=== PATIENT | male | born 1960 | race Caucasian/White ===

== ENCOUNTER 2018-09-26 22:32 | Inpatient (IN) ==
[2018-09-26] MEDS ORDERED: Ketorolac Inj 30 MG/ML (IVP) Vial IV.PUSH ONE (23:02)
[2018-09-26] MEDS ORDERED: Morphine Inj 4 MG/ML Vial IV.PUSH ONE (23:02)
[2018-09-26 23:53] LABS: Baso % (Auto) 0.6 % (0.0-2.0); Eos # (Auto) 0.4 th/mm3 (0.0-0.4); Eos % (Auto) 6.9 % (0.0-4.0); Hematocrit 41.2 % (39.0-51.0); Hemoglobin 14.7 gm/dL (13.0-17.0); Lymph # (Auto) 1.4 th/mm3 (1.0-4.8); Lymph % (Auto) 25.3 % (9.0-44.0); Mean Corpuscular HGB Conc 35.6 % (32.0-36.0); Mean Corpuscular Hemoglobin 31.8 pg (27.0-34.0); Mean Corpuscular Volume 89.4 fL (80.0-100.0); Mean Platelet Volume 7.8 fL (7.0-11.0); Mono # (Auto) 0.5 th/mm3 (0.0-0.9); Mono % (Auto) 9.4 % (0.0-8.0); Neut # (Auto) 3.3 th/mm3 (1.8-7.7); Neut % (Auto) 57.8 % (16.0-70.0); Platelet Count 213 th/mm3 (150-450); Red Blood Count 4.61 mil/mm3 (4.50-5.90); White Blood Count 5.6 th/mm3 (4.0-11.0)
--- NOTE | 2018-09-27 00:36 | CT ---
EXAM DATE: 09/27/2018 12:16 AM EST AGE/SEX: 57 years / Male INDICATIONS: Trauma; fall. Left sided abdominal pain. CLINICAL DATA: This is the patient's initial encounter. Patient reports that signs and symptoms have been present for 1 day and indicates a pain score of 10/10. MEDICAL/SURGICAL HISTORY: Hypertension. Hypercholesterolemia. . ORAL CONTRAST: No oral contrast ingested. RADIATION DOSE: 6.64 CTDI (mGy) COMPARISON: No prior exams available for comparison. TECHNIQUE: Multiple contiguous axial images were obtained through the abdomen and pelvis following b olus infusion of 96 ml Omnipaque 350 (iohexol) nonionic water-soluble contrast as a single exam dos e. No oral contrast ingested. Using automated exposure control and adjustment of the mA and/or kV ac cording to patient size, radiation dose was kept as low as reasonably achievable to obtain optimal di agnostic quality images. DICOM format image data is available electronically for review and comparis on. FINDINGS: Lower Lungs: The visualized lower lungs are clear. Liver: Mild hepatomegaly. Multiple tiny hepatic hypodensities, likely cysts. No evidence of biliary d uctal dilatation. A calcified gallstones. Spleen: Enlarged without focal mass. Pancreas: Unremarkable without mass or calcification. Kidneys: Normal in size and shape. No evidence of mass or hydronephrosis. Adrenal Glands: Unremarkable. Aorta: The aorta and proximal iliac vessels are grossly unremarkable without aneurysmal dilation. Bowel/Mesentery: The bowel loops are grossly unremarkable. The cecum and sigmoid colon have a normal configuration. Abdominal Wall: Intact. Retroperitoneum: No evidence of adenopathy in the retrocrural, para-aortic, or deep pelvic regions. Bladder: Contours are smooth. Reproductive Organs: Central prosthetic calcifications Inguinal: The inguinal region is unremarkable without evidence of adenopathy. Bony Structures: Minimally displaced fractures of the left transverse processes of L1, L2 and L4. CONCLUSION: 1. Left lumbar transverse process fractures. 2. No acute intra-abdominal or pelvic traumatic injury. Electronically signed by: Nilay Greco MD Board Certified Radiologist 09/27/2018 12:35 AM EST
[2018-09-27 00:38] LABS: Alanine Aminotransferase 33 U/L (12-78); Alkaline Phosphatase 59 U/L (45-117); Anion Gap 8 meq/L (5-15); Aspartate Aminotransferase 28 U/L (15-37); Blood Urea Nitrogen 14 mg/dL (7-18); Calcium 8.2 mg/dL (8.5-10.1); Carbon Dioxide 32.1 meq/L (21.0-32.0); Chloride 96 meq/L (98-107); Glomerular Filtration Rate 84 mL/min (>89); Glucose,Random 85 mg/dL (74-106); Sodium 136 meq/L (136-145); Total Protein 7.3 g/dL (6.4-8.2)
--- NOTE | 2018-09-27 00:40 | ED ---
HPI General Chief Complaint: Fall Stated Complaint: Fall Time Seen by Provider: 09/26/18 22:40 Source: patient Mode of arrival: EMS Limitations: no limitations History of Present Illness HPI Narrative: 57-year-old male who has been drinking while at the [employer] slipped and fell from his truck and landed with his back on the hitch. Patient initially started having lower back pain. He is unable to stand and ambulate due to the pain. Patient points the pain to his left flank/CVA area. Vital signs were relatively stable. Patient had a substantial quantity to drink as per his behavior and admission although he does not say exactly how much. Patient denies head injury. No loss of consciousness. Related Data Home Medications Medication Instructions Recorded Confirmed amlodipine 2.5 mg PO DAILY 09/26/18 09/26/18 atorvastatin 10 mg PO DAILY 09/26/18 09/26/18 hydrochlorothiazide 12.5 mg PO DAILY 09/26/18 09/26/18 Previous Rx's Medication Instructions Recorded methocarbamol 500 mg PO Q8HR #90 tab 10/01/18 oxycodone-acetaminophen 1 tab PO Q4HR PRN #42 tab 10/01/18 Allergies Allergy/AdvReac Type Severity Reaction Status Date / Time Penicillins Allergy Rash Verified 09/26/18 22:38 Review of Systems ROS: all other systems reviewed are negative [facility] Medical History Medical History Hypercholesteremia (Acute) Hypertension (Acute) Surgical History Surgical History H/O knee surgery (Acute) Social History Social History Substance History: No History of Abuse Second Hand Smoke Exposure: No Smoking Status: Former smoker Tobacco Type: Cigarettes How Often Do You Have a Drink Containing Alcohol: 2 to 3 times a week Recent Travel in [facility] within the Last 8 Weeks: No Recent Out of Country Travel within the Last 8 Weeks: No Immunization History Tetanus Immunization: <5 Years Exam Narrative Exam Narrative: GENERAL: Moderately intoxicated, moderate distress SKIN: Focused skin assessment warm/dry. HEAD: Atraumatic. Normocephalic. EYES: Pupils equal and round. No scleral icterus. No injection or drainage. ENT: No nasal bleeding or discharge. Mucous membranes pink and moist. NECK: Trachea midline. No JVD. CARDIOVASCULAR: Regular rate and rhythm. No murmur appreciated. RESPIRATORY: No accessory muscle use. Clear to auscultation. Breath sounds equal bilaterally. GASTROINTESTINAL: Abdomen soft, non-tender, nondistended. Hepatic and splenic margins not palpable. MUSCULOSKELETAL: No obvious deformities. No clubbing. No cyanosis. No edema. Upon palpation of the back no midline tenderness or step-off. Patient has substantial left paraspinal tenderness over the T12-L5 area. Moving the left hip joint without much difficulty. NEUROLOGICAL: Awake and alert. No obvious cranial nerve deficits. Motor grossly within normal limits. Normal speech. PSYCHIATRIC: Appropriate mood and affect; insight and judgment normal. Course Initial Documented Vital Signs Temperature 98.1 F 09/26/18 22:38 Pulse Rate 55 L 09/26/18 22:38 Respiratory Rate 20 09/26/18 22:38 Blood Pressure 154/97 H 09/26/18 22:38 Pulse Oximetry 98 09/26/18 22:38 Last Documented Vital Signs Temperature 97.5 F L 10/01/18 08:00 Pulse Rate 59 L 10/01/18 08:00 Respiratory Rate 18 10/01/18 08:00 Blood Pressure 152/92 H 10/01/18 08:00 Pulse Oximetry 95 10/01/18 08:00 Medical Decision Making MDM Narrative Medical decision making narrative: 12:38 AM patient was medicated for pain. Awaiting for the CAT scan and blood test report. I looked at the CT myself and the left transverse processes of L2, L3 and L5 appears to be fractured. Awaiting for the official read. Patient may need to be admitted for pain control. 1:40AM Patient did not ambulate well after the second pain medication and TLSO brace. Will admit him. Ordered Potassium replacement for the hypokalemia. Will admit him for intractable pain. Medical Screen Exam Complete: Yes Emergency Medical Condition: Yes Lab Data Result diagrams: 09/26/18 23:00 09/30/18 14:15 Lab Results 09/26/18 09/26/18 09/28/18 Range/Units 23:00 23:00 07:22 WBC 5.6 (4.0-11.0) th/mm3 RBC 4.61 (4.50-5.90) mil/mm3 Hgb 14.7 (13.0-17.0) gm/dL Hct 41.2 (39.0-51.0) % MCV 89.4 (80.0-100.0) fL MCH 31.8 (27.0-34.0) pg MCHC 35.6 (32.0-36.0) % RDW 13.0 (11.6-17.2) % Plt Count 213 (150-450) th/mm3 MPV 7.8 (7.0-11.0) fL Neut % (Auto) 57.8 (16.0-70.0) % Lymph % (Auto) 25.3 (9.0-44.0) % [place] % (Auto) 9.4 H (0.0-8.0) % Eos % (Auto) 6.9 H (0.0-4.0) % Baso % (Auto) 0.6 (0.0-2.0) % Neut # (Auto) 3.3 (1.8-7.7) th/mm3 Lymph # (Auto) 1.4 (1.0-4.8) th/mm3 [place] # (Auto) 0.5 (0.0-0.9) th/mm3 Eos # (Auto) 0.4 (0.0-0.4) th/mm3 Baso # (Auto) 0.0 (0.0-0.2) th/mm3 WBC Differential . Differential Comment Auto diff final Sodium 136 144 (136-145) meq/L Potassium 2.6 L* 3.1 L (3.5-5.1) meq/L Chloride 96 L 104 D (98-107) meq/L Carbon Dioxide 32.1 H 34.1 H (21.0-32.0) meq/L Anion Gap 8 6 (5-15) meq/L BUN 14 17 (7-18) mg/dL Creatinine 0.93 0.80 (0.60-1.30) mg/dL Estimated GFR 84 L Greater than 89 (>89) mL/min Random Glucose 85 81 (74-106) mg/dL Calcium 8.2 L 7.6 L (8.5-10.1) mg/dL Magnesium 1.8 (1.5-2.5) mg/dL Total Bilirubin 0.4 (0.2-1.0) mg/dL AST 28 (15-37) U/L ALT 33 (12-78) U/L Alkaline Phosphatase 59 (45-117) U/L Total Protein 7.3 (6.4-8.2) g/dL Albumin 4.0 (3.4-5.0) g/dL Serum Alcohol 232 H (0-5) mg/dL 09/29/18 09/30/18 Range/Units 06:45 14:15 WBC (4.0-11.0) th/mm3 RBC (4.50-5.90) mil/mm3 Hgb (13.0-17.0) gm/dL Hct (39.0-51.0) % MCV (80.0-100.0) fL MCH (27.0-34.0) pg MCHC (32.0-36.0) % RDW (11.6-17.2) % Plt Count (150-450) th/mm3 MPV (7.0-11.0) fL Neut % (Auto) (16.0-70.0) % Lymph % (Auto) (9.0-44.0) % [place] % (Auto) (0.0-8.0) % Eos % (Auto) (0.0-4.0) % Baso % (Auto) (0.0-2.0) % Neut # (Auto) (1.8-7.7) th/mm3 Lymph # (Auto) (1.0-4.8) th/mm3 [place] # (Auto) (0.0-0.9) th/mm3 Eos # (Auto) (0.0-0.4) th/mm3 Baso # (Auto) (0.0-0.2) th/mm3 WBC Differential Differential Comment Sodium 140 (136-145) meq/L Potassium 3.2 L 3.3 L (3.5-5.1) meq/L Chloride 102 (98-107) meq/L Carbon Dioxide 31.8 (21.0-32.0) meq/L Anion Gap 6 (5-15) meq/L BUN 16 (7-18) mg/dL Creatinine 0.74 (0.60-1.30) mg/dL Estimated GFR Greater than 89 (>89) mL/min Random Glucose 96 (74-106) mg/dL Calcium 7.8 L (8.5-10.1) mg/dL Magnesium (1.5-2.5) mg/dL Total Bilirubin (0.2-1.0) mg/dL AST (15-37) U/L ALT (12-78) U/L Alkaline Phosphatase (45-117) U/L Total Protein (6.4-8.2) g/dL Albumin (3.4-5.0) g/dL Serum Alcohol (0-5) mg/dL Imaging Data Radiologist's impression: Abdomen/Pelvis CT 09/26/18 23:02 CONCLUSION: 1. Left lumbar transverse process fractures. 2. No acute intra-abdominal or pelvic traumatic injury. Lumbar Spine MRI 09/27/18 00:00 CONCLUSION: 1. Mild degenerative changes as above. No canal or foraminal stenosis. No direct nerve root compression. Conus medullaris intact Discharge Plan Discharge Disposition Patient Disposition: ED Admit(ED Internal Use Only) Discharge Condition Condition: Good Discharge Order Discharge Orders: Discharge Order (Routine); Ordered 10/01/18 Ordered By: Yanet Holder ED Use Only Admit Order (Routine); Ordered 09/27/18 Ordered By: Yolis Leong Discharge Details Anticipated Discharge Date: 10/01/18 Physicians Team ED Provider: Yolis Leong Primary Care Provider: Primary Care Maty,Laurel Attending Provider: Yanet Holder Other Providers: Wallaec Aguilar Status ED Status: Left Department Discharge Information Discharge Date/Time: 09/27/18 05:14
[2018-09-27] MEDS ORDERED: Morphine Sulfate Inj 8 MG/ML Vial IV.PUSH ONE (00:50)
[2018-09-27 00:55] LABS: Alcohol 232 mg/dL (0-5)
[2018-09-27 00:56] LABS: Potassium 2.6 meq/L (3.5-5.1)
[2018-09-27] MEDS ORDERED: Potassium Chlor 20 mEq Premix 20 MEQ/100 ML PIGGYBACK IV.SIG ONE (01:04)
[2018-09-27] MEDS ORDERED: Acetaminophen 325 MG Tablet PO PRN (01:47)
[2018-09-27] MEDS ORDERED: Bisacodyl 10 MG Supp RECTAL PRN (01:47)
[2018-09-27] MEDS ORDERED: Naloxone Inj 0.4 MG/ML Vial IV.PUSH PRN (01:47)
[2018-09-27] MEDS: Sod Chloride 0.9% Inj 1,000 ML IV.CONT SCH ×3 (02:05→23:24)
[2018-09-27] MEDS ORDERED: diazePAM 5 MG Tablet PO SCH (02:30)
--- NOTE | 2018-09-27 02:43 | P.HPIM ---
History of Present Illness Primary Care Physician: No Primary Care Physician History of Present Illness: This is a 57-year-old male with a PMH of HTN and Hyperlipidemia who was brought to the ER after a fall w/ c/o back pain. [place], striking his back on the hitch. No head trauma or LOC. No other injuries reported. Pain is severe, constant, 10/10, non-radiating, worse w/ ambulation. On arrival, BP 154/97, HR 55, O2 sat 98% on RA, Afebrile. CBC unremarkable. K+ 2.6. GFR 84. Alcohol 232. CT Abdomen/Pelvis with left lumbar transverse process fractures. TLSO brace and ambulation attempted in ER, however pt w/ significant pain, unable to ambulate at this time. Diagnosis (1) Fall: (2) Lumbar transverse process fracture: (3) Intractable pain: (4) Hypokalemia: Inpatient Certification Inpatient Certification: I certify that the inpatient services were ordered in accordance with Medicare regulations governing the order. This includes certification that hospital inpatient services are reasonable and necessary and in the case of services not specified as inpatient-only under 42 CFR 419.22(n), that they are appropriately provided as inpatient services in accordance to with the 2-midnight benchmark under 43 CFR 412.3(e) Estimated Total Length of Stay (Days): 2 Plans for Post Hospital Care: Not yet determined Review of Systems PAST FAMILY HISTORY: Reviewed. No h/o DM or CAD Review of Systems: all other systems reviewed are negative [facility] Medical History Medical History Hypercholesteremia (Acute) Hypertension (Acute) Surgical History Surgical History H/O knee surgery (Acute) Social History Social History Substance History: No History of Abuse Second Hand Smoke Exposure: Yes Smoking Status: Current every day smoker Tobacco Type: Cigarettes How Often Do You Have a Drink Containing Alcohol: 4 or more times a week Recent Travel in [facility] within the Last 8 Weeks: No Recent Out of Country Travel within the Last 8 Weeks: No Immunization History Tetanus Immunization: <5 Years Medications and Allergies Allergies Allergy/AdvReac Type Severity Reaction Status Date / Time Penicillins Allergy Rash Verified 09/26/18 22:38 Home Medications Medication Instructions Recorded Confirmed Type amlodipine 2.5 mg PO DAILY 09/26/18 09/26/18 History atorvastatin 10 mg PO DAILY 09/26/18 09/26/18 History hydrochlorothiazide 12.5 mg PO DAILY 09/26/18 09/26/18 History Active Medications: Active Medications Acetaminophen (Tylenol) 650 mg PO Q4H PRN PRN Reason: Temp > 100.4 Hydrocodone Bitart/Acetaminophen ([place] 5/325) 1 tab PO Q4H PRN PRN Reason: PAIN SCALE 3 TO 5 Al Hydroxide/Mg Hydroxide (Milk Of Magnesia Liq) 30 ml PO Q12H PRN PRN Reason: Mild Constipation Bisacodyl (Dulcolax Supp) 10 mg RECTAL DAILY PRN PRN Reason: SEVERE CONSITIPATION Diazepam (Valium) 5 mg PO Q8H [facility] Potassium Chloride (Kcl 20 Meq Premix Inj) 20 meq in 100 mls @ 50 mls/hr IV.SIG ONCE ONE Stop: 09/27/18 03:03 Last Admin: 09/27/18 01:35 Dose: 50 mls/hr Sodium Chloride (Ns Inj) 1,000 mls @ 100 mls/hr IV.CONT .Q10H [facility] Last Admin: 09/27/18 02:05 Dose: 100 mls/hr Lactulose (Lactulose Liq) 30 ml PO DAILY PRN PRN Reason: SEVERE CONSITIPATION Morphine Sulfate (Morphine Inj) 2 mg IV.PUSH Q4H PRN PRN Reason: PAIN SCALE 6 TO 10 Naloxone HCl (Narcan Inj) 0.4 mg IV.PUSH UNSCH PRN PRN Reason: SEE LABEL COMMENTS Ondansetron HCl (Zofran Inj) 4 mg IV.PUSH Q6H PRN PRN Reason: NAUSEA OR VOMITING Senna/Docusate Sodium (Noelle-Colace) 1 tab PO BID [facility] Sennosides (Senokot) 17.2 mg PO Q12H PRN PRN Reason: Moderate Constipation Sodium Chloride (Ns Flush) 2 ml IV.FLUSH BID ABHIJIT Sodium Chloride (Ns Flush) 2 ml IV.FLUSH PRN PRN PRN Reason: FLUSH AFTER USING IV ACCESS Physical Exam Vital signs: Vital Signs 09/26/18 22:38 09/26/18 22:45 09/27/18 00:46 Temperature 98.1 F Pulse Rate 55 L 55 L Respiratory Rate 20 20 20 Blood Pressure 154/97 H 150/90 H Pulse Oximetry 98 98 09/27/18 00:47 09/27/18 01:15 09/27/18 01:39 Temperature Pulse Rate 58 L Respiratory Rate 20 20 17 Blood Pressure 129/78 Pulse Oximetry 97 Intake & Output 09/26/18 09/26/18 09/27/18 06:59 18:59 06:59 Weight 90.718 kg Narrative: PE: GENERAL: Very pleasant middle-aged white male in no acute distress. at bedside. SKIN: Focused skin assessment warm and dry. HEENT: PERRLA, EOMI. No scleral icterus or conjunctival pallor. No lid lag or facial droop. CARDIOVASCULAR: Regular rate and rhythm. No obvious murmurs to auscultation. No chest tenderness to palpation. RESPIRATORY: No obvious rhonchi or wheezing. Clear to auscultation. Breath sounds equal bilaterally. GASTROINTESTINAL: Abdomen soft, non-tender, nondistended. BS normal. MUSCULOSKELETAL: Extremities without clubbing, cyanosis, or edema. No obvious deformities. +Lumbar spinous process tenderness NEUROLOGICAL: Awake, alert and oriented x4. No focal neurologic deficits. Moving both upper and lower extremities spontaneously. PSYCHIATRIC: Appropriate mood and affect. Insight and judgment normal. Results Labs CBC & Chem 7: 09/26/18 23:00 09/26/18 23:00 Imaging Impressions Abdomen/Pelvis CT 09/26/18 23:02 CONCLUSION: 1. Left lumbar transverse process fractures. 2. No acute intra-abdominal or pelvic traumatic injury. Caprini VTE Risk Assessment Caprini VTE Risk Assessment: No/Low Risk (score <= 1) Caprini Risk Assessment Model: Point Value = 1 Point Value = 2 Point Value = 3 Point Value = 5 Age 41-60 Minor surgery BMI > 25 kg/m2 Swollen legs Varicose veins or History of unexplained or recurrent spontaneous Oral contraceptives or hormone replacement Sepsis (< 1 month) Serious lung disease, including pneumonia (< 1 month) Abnormal pulmonary function Acute myocardial infarction Congestive heart failure (< 1 month) History of inflammatory bowel disease Medical patient at bed rest Age 61-74 Arthroscopic surgery Major open surgery (> 45 min) Laparoscopic surgery (> 45 min) Malignancy Confined to bed (> 72 hours) Immobilizing plaster cast Central venous access Age >= 75 History of VTE Family history of VTE Factor V Leiden Prothrombin 12563M Lupus anticoagulant Anticardiolipin antibodies Elevated serum homocysteine Heparin-induced thrombocytopenia Other congenital or acquired thrombophilia Stroke (< 1 month) Elective arthroplasty Hip, pelvis, or leg fracture Acute spinal cord injury (< 1 month) Prophylaxis Regimen: Total Risk Factor Score Risk Level Prophylaxis Regimen 0-1 Low Early ambulation 2 Moderate Order ONE of the following: *Sequential Compression Device (SCD) *Heparin 5000 units SQ BID 3-4 Higher Order ONE of the following medications: *Heparin 5000 units SQ TID *Enoxaparin/Lovenox 40 mg SQ daily (WT < 150 kg, CrCl > 30 mL/min) *Enoxaparin/Lovenox 30 mg SQ daily (WT < 150 kg, CrCl > 10-29 mL/min) *Enoxaparin/Lovenox 30 mg SQ BID (WT < 150 kg, CrCl > 30 mL/min) AND/OR *Sequential Compression Device (SCD) 5 or more Highest Order ONE of the following medications: *Heparin 5000 units SQ TID (Preferred with Epidurals) *Enoxaparin/Lovenox 40 mg SQ daily (WT < 150 kg, CrCl > 30 mL/min) *Enoxaparin/Lovenox 30 mg SQ daily (WT < 150 kg, CrCl > 10-29 mL/min) *Enoxaparin/Lovenox 30 mg SQ BID (WT < 150 kg, CrCl > 30 mL/min) AND *Sequential Compression Device (SCD) Assessment and Plan (1) Fall: Code(s): W19.XXXA - Unspecified fall, initial encounter Status: Acute (2) Lumbar transverse process fracture: Code(s): S32.009A - Unspecified fracture of unspecified lumbar vertebra, initial encounter for closed fracture Status: Acute (3) Intractable pain: Code(s): R52 - Pain, unspecified Status: Acute (4) Hypokalemia: Code(s): E87.6 - Hypokalemia Status: Acute Plan A/P: 1. Fall: s/p fall while intoxicated, no LOC or head trauma reported, no other injuries noted. 2. Lumbar Transverse Process Fx: secondary to above, unable to tolerate TLSO due to significant pain, unable to ambulate due to severe pain. Consult PT for eval/tx, outpatient Neuro Surgery follow up 3. Intractable Pain: secondary to fall w/ lumbar process fractures, s/p Morphine in ER w/ minimal improvement, continue analgesics, add Valium, PT for eval/tx as above. 4. Hypokalemia: K+ 2.6, s/p PO/IV replacement, will recheck labs in am, additional replacement as needed. 5. DVT Prophylaxis: SCD/Teds 6. Social work for d/c planning as needed. 7. Case discussed w/ ER physician at length, labs/records/imaging reviewed by me
[2018-09-27] MEDS: Morphine Sulfate Inj 2 MG/ML Vial IV.PUSH PRN ×5 (05:06→23:22)
[2018-09-27] MEDS: Senna/Docusate Sodium 8.6/50 MG Tablet PO SCH ×2 (08:21→21:31)
[2018-09-27] MEDS: amLODIPine 5 MG Tablet PO SCH (10:40)
--- NOTE | 2018-09-27 11:25 | P.PNIM ---
Subjective Interval history: Complaining of left lower leg pain and back pain. Denies any numbness. Would like his home medications for blood pressure and cholesterol restarted. Reports that he does not drink alcohol heavily on a daily basis. Physical Exam Vital signs: Vital Signs 09/26/18 22:38 09/26/18 22:45 09/27/18 00:46 Temperature 98.1 F Pulse Rate 55 L 55 L Respiratory Rate 20 20 20 Blood Pressure 154/97 H 150/90 H Pulse Oximetry 98 98 09/27/18 00:47 09/27/18 01:15 09/27/18 01:39 Temperature Pulse Rate 58 L Respiratory Rate 20 20 17 Blood Pressure 129/78 Pulse Oximetry 97 09/27/18 04:52 09/27/18 06:11 09/27/18 07:49 Temperature Pulse Rate 53 L Respiratory Rate 18 17 18 Blood Pressure 169/94 H Pulse Oximetry 98 09/27/18 08:05 Temperature 97.9 F Pulse Rate 61 Respiratory Rate 16 Blood Pressure 127/71 Pulse Oximetry 95 Intake & Output 09/26/18 09/27/18 09/27/18 18:59 06:59 18:59 Intake Total 100 / 100 Balance 100 / 100 Weight 112.1 kg Intake: IV 100 / 100 KCl 20 mEq Premix Inj 20 meq In 100 / 100 100 ml @ 50 mls/hr IV.SIG ONCE ONE Rx#:[id number] Other: Date of Last Bowel Movement 09/26/18 09/26/18 Weight On Admission 112.1 kg Narrative: PE: GENERAL: Very pleasant middle-aged white male in no acute distress. at bedside. CARDIOVASCULAR: Regular rate and rhythm. No obvious murmurs to auscultation. No chest tenderness to palpation. RESPIRATORY: No obvious rhonchi or wheezing. Clear to auscultation. Breath sounds equal bilaterally. GASTROINTESTINAL: Abdomen soft, non-tender, nondistended. BS normal. MUSCULOSKELETAL: Extremities without clubbing, cyanosis, or edema. No obvious deformities. Tenderness palpated in the mid lower back NEUROLOGICAL: Awake, alert and oriented x4. No focal neurologic deficits. Moving both upper and lower extremities spontaneously with a 5 out of 5 motor strength. Results Labs CBC & Chem 7: 09/26/18 23:00 09/26/18 23:00 Imaging Imaging: Impressions Abdomen/Pelvis CT 09/26/18 23:02 CONCLUSION: 1. Left lumbar transverse process fractures. 2. No acute intra-abdominal or pelvic traumatic injury. Assessment and Plan (1) Fall: Code(s): W19.XXXA - Unspecified fall, initial encounter Status: Acute (2) Lumbar transverse process fracture: Code(s): S32.009A - Unspecified fracture of unspecified lumbar vertebra, initial encounter for closed fracture Status: Acute (3) Intractable pain: Code(s): R52 - Pain, unspecified Status: Acute (4) Hypokalemia: Code(s): E87.6 - Hypokalemia Status: Acute Plan 57-year-old white male with a history of hypertension hyperlipidemia currently visiting from [place] presents with back pain after he sustained a fall from his truck striking his back on the hitch Left lumbar transverse process fractures, L1, L2 and L4 -unable to ambulate due to significant pain ; likely will need TLSO, neurosurgery consult for follow- up. Physical therapy evaluation [place] and IV morphine for pain; add lidocaine patch Hypokalemiareplete check magnesium level Hypertension resume home amlodipine and HCTZ Hyperlipidemiaresume home statin DVT prophylaxisSCDs Progress Note: Quality VTE Deep Vein Thrombosis/Pulmonary Embolism Present on Admission: No
--- NOTE | 2018-09-27 12:01 | P.CONNS ---
History of Present Illness Service: Neurosurgery Consult date: 09/27/18 Requesting Physician: Yanet Holder Reason for Consult: L1,2 and 4 transverse process fractures Primary Care Provider: No Primary Care Physician History of Present Illness: I was asked by Dr. Holder to see and evaluate this 57-year-old male who has been drinking, fell from his truck and landed with his back on the hitch. Patient had acute onset of low back pain. In ED, he was unable to stand and ambulate due to pain. Patient points the pain to his left flank/CVA area. Vital signs were relatively stable. Patient denies head injury. No loss of consciousness. Review of Systems All other systems reviewed negative except as stated in HPI PMFSH - History History Provided By: Patient - Medical History Medical History: Medical History (Last Reviewed 09/27/18 @ 11:54 by Wallace Aguilar MD) Hypercholesteremia Hypertension - Surgical History Surgical History: Surgical History (Last Reviewed 09/27/18 @ 11:54 by Wallace Aguilar MD) H/O knee surgery - Tobacco History Second Hand Smoke Exposure: No Tobacco Use In Past 30 Days: No Smoking Status: Former smoker Tobacco Type: Cigarettes - Alcohol History How Often Do You Have a Drink Containing Alcohol: 2 to 3 times a week - Substance Use History Substance History: No History of Abuse - Travel History Recent Travel in the [place] Within the Last 8 Weeks: No Recent Travel Out of the Country Within the Last 8 Weeks: No - Immunization History Tetanus Immunization: <5 Years Hx Influenza Vaccine This Season: No Medications and Allergies Active Medications: Active Medications Acetaminophen (Tylenol) 650 mg PO Q4H PRN PRN Reason: Temp > 100.4 Hydrocodone Bitart/Acetaminophen ([place] 5/325) 1 tab PO Q4H PRN PRN Reason: PAIN SCALE 3 TO 5 Last Admin: 09/27/18 08:21 Dose: 1 tab Hydrocodone Bitart/Acetaminophen ([place] 10/325) 1 tab PO Q4H PRN PRN Reason: pain 6 to 10 Al Hydroxide/Mg Hydroxide (Milk Of Magnesia Liq) 30 ml PO Q12H PRN PRN Reason: Mild Constipation Amlodipine Besylate (Norvasc) 2.5 mg PO DAILY [facility] Last Admin: 09/27/18 10:40 Dose: 2.5 mg Atorvastatin Calcium (Lipitor) 10 mg PO DAILY [facility] Last Admin: 09/27/18 10:39 Dose: 10 mg Bisacodyl (Dulcolax Supp) 10 mg RECTAL DAILY PRN PRN Reason: SEVERE CONSITIPATION Cyclobenzaprine HCl (Flexeril) 10 mg PO Q8H PRN PRN Reason: SPASM Diazepam (Valium) 5 mg PO Q8H [facility] Last Admin: 09/27/18 10:40 Dose: Not Given Hydrochlorothiazide (Microzide) 12.5 mg PO DAILY [facility] Last Admin: 09/27/18 10:40 Dose: 12.5 mg Sodium Chloride (Ns Inj) 1,000 mls @ 100 mls/hr IV.CONT .Q10H [facility] Last Admin: 09/27/18 02:05 Dose: 100 mls/hr Lactulose (Lactulose Liq) 30 ml PO DAILY PRN PRN Reason: SEVERE CONSITIPATION Lidocaine HCl (Lidoderm 5% Patch.12 Hr) 1 patch T-DERMAL DAILY [facility] Miscellaneous (Pill Splitter) 1 each OTHER UNSCH PRN PRN Reason: SEE LABEL COMMENTS Morphine Sulfate (Morphine Inj) 4 mg IV.PUSH Q4H PRN PRN Reason: BREAKTHROUGH PAIN Naloxone HCl (Narcan Inj) 0.4 mg IV.PUSH UNSCH PRN PRN Reason: SEE LABEL COMMENTS Ondansetron HCl (Zofran Inj) 4 mg IV.PUSH Q6H PRN PRN Reason: NAUSEA OR VOMITING Senna/Docusate Sodium (Noelle-Colace) 1 tab PO BID [facility] Last Admin: 09/27/18 08:21 Dose: 1 tab Sennosides (Senokot) 17.2 mg PO Q12H PRN PRN Reason: Moderate Constipation Sodium Chloride (Ns Flush) 2 ml IV.FLUSH BID [facility] Last Admin: 09/27/18 08:22 Dose: 2 ml Sodium Chloride (Ns Flush) 2 ml IV.FLUSH PRN PRN PRN Reason: FLUSH AFTER USING IV ACCESS Allergies Allergy/AdvReac Type Severity Reaction Status Date / Time Penicillins Allergy Rash Verified 09/26/18 22:38 Home Medications Medication Instructions Recorded Confirmed Type amlodipine 2.5 mg PO DAILY 09/26/18 09/26/18 History atorvastatin 10 mg PO DAILY 09/26/18 09/26/18 History hydrochlorothiazide 12.5 mg PO DAILY 09/26/18 09/26/18 History Exam Vital signs: Vital Signs 09/26/18 22:38 09/26/18 22:45 09/27/18 00:46 Temperature 98.1 F Pulse Rate 55 L 55 L Respiratory Rate 20 20 20 Blood Pressure 154/97 H 150/90 H Pulse Oximetry 98 98 09/27/18 00:47 09/27/18 01:15 09/27/18 01:39 Temperature Pulse Rate 58 L Respiratory Rate 20 20 17 Blood Pressure 129/78 Pulse Oximetry 97 09/27/18 04:52 09/27/18 06:11 09/27/18 07:49 Temperature Pulse Rate 53 L Respiratory Rate 18 17 18 Blood Pressure 169/94 H Pulse Oximetry 98 09/27/18 08:05 Temperature 97.9 F Pulse Rate 61 Respiratory Rate 16 Blood Pressure 127/71 Pulse Oximetry 95 Intake & Output 09/26/18 09/27/18 09/27/18 18:59 06:59 18:59 Intake Total 100 / 100 Balance 100 / 100 Weight 112.1 kg Intake: IV 100 / 100 KCl 20 mEq Premix Inj 20 meq In 100 / 100 100 ml @ 50 mls/hr IV.SIG ONCE ONE Rx#:[id number] Other: Date of Last Bowel Movement 09/26/18 09/26/18 Weight On Admission 112.1 kg - Constitutional mild distress Comments: Severe LBP which radiates to LLE to level of the knee - Routine HEENT Exam Head: Present: normocephalic, atraumatic Eye: Present: EOMI, PERRL, normal accommodation ENT: Present: oropharynx clear - Routine Neck Exam Present: supple, full ROM - Routine Respiratory Exam Present: CTA bilaterally - Routine Cardiovascular Exam Present: RRR - Routine Back/Spine/Pelvis Exam Back/Spine: Present: full ROM, paraspinal tenderness, muscle spasm, pain with flexion, abnormal straight leg raise - Routine Skin Exam Present: intact, warm, normal turgor - Routine Neurological Exam Present: alert, oriented X3, CN II-XII intact, normal reflexes, moving all extremities, normal tone, vision grossly intact, hearing grossly intact, normal speech - Detailed Neurological Exam: Coma Scale Eye Opening: Spontaneous Verbal Response: Oriented Motor Response: Obey commands [place] Coma Scale Total: 15 - Routine Psychiatric Exam Present: normal affect, normal thought process, cooperative Results - Laboratory Findings CBC and BMP: 09/26/18 23:00 09/26/18 23:00 Abnormal lab findings: Abnormal Labs 09/26/18 09/26/18 23:00 23:00 [place] % (Auto) 9.4 H Eos % (Auto) 6.9 H Potassium 2.6 L* Chloride 96 L Carbon Dioxide 32.1 H Estimated GFR 84 L Calcium 8.2 L Serum Alcohol 232 H - Diagnostic Findings EKG: report reviewed, image reviewed CT scan - abdomen: report reviewed, image reviewed Assessment and Plan - Plan [address] confirmed Lt. L1,2,4 TP fractures s/p mechanical fall unto a trailer hitch c/o severe LBP which radiates to LLE to the level of the knee Neuro intact +SLR on the right to approx. 30 degrees, on the left 20 degrees recc: lumbar corsette for comfort. Pain control, would add muscle relaxant to his regimen... Robaxin 750 mg. po. T.I.D These are stable fractures and will not require brace or Neurosurgical intervention. However, will need L-spine MRI w/o EZEQUIEL to r/o acute disc herniation as patient exhibiting radicular symptoms. ?Trauma survey Will continue to follow
--- NOTE | 2018-09-27 17:08 | MR ---
EXAM DATE: 09/27/2018 5:03 PM EST AGE/SEX: 57 years / Male INDICATIONS: Pain. Left lower extremity radiculopathy. CLINICAL DATA: This is the patient's initial encounter. Patient reports that signs and symptoms have been present for 1 day and indicates a pain score of 5/10. MEDICAL/SURGICAL HISTORY: Hypertension. . Knee surgery. COMPARISON: No prior exams available for comparison. TECHNIQUE: Multiplanar, multisequence MRI of the lumbar spine was performed without contrast. Patie nt was scanned in a sitting position; neutral, flexion, and extension scans were performed in the sa gittal plane. FINDINGS: At B22-N7-E3 there is no significant abnormality. At L2-3-4-5 there are minimal disc bulges and mild disc degeneration but without significant canal or foraminal stenosis. Mild facet arthropathy. At L5-S1 there is facet arthropathy without canal or foraminal stenosis. Normal alignment. Conus medullaris intact. CONCLUSION: 1. Mild degenerative changes as above. No canal or foraminal stenosis. No direct nerve root compress ion. Conus medullaris intact Electronically signed by: David Dasilva MD Board Certified Radiologist 09/27/2018 5:07 PM EST
[2018-09-28] MEDS: Sod Chloride 0.9% Inj 1,000 ML IV.CONT SCH ×2 (00:25→08:59)
[2018-09-28] MEDS: Morphine Sulfate Inj 2 MG/ML Vial IV.PUSH PRN ×5 (06:45→23:48)
[2018-09-28 08:14] LABS: Anion Gap 6 meq/L (5-15); Blood Urea Nitrogen 17 mg/dL (7-18); Calcium 7.6 mg/dL (8.5-10.1); Carbon Dioxide 34.1 meq/L (21.0-32.0); Chloride 104 meq/L (98-107); Glomerular Filtration Rate Greater Than 89 mL/min (>89); Glucose,Random 81 mg/dL (74-106); Magnesium 1.8 mg/dL (1.5-2.5); Potassium 3.1 meq/L (3.5-5.1); Sodium 144 meq/L (136-145)
[2018-09-28] MEDS: Senna/Docusate Sodium 8.6/50 MG Tablet PO SCH ×2 (08:58→21:20)
[2018-09-28] MEDS: amLODIPine 5 MG Tablet PO SCH (08:58)
[2018-09-28] MEDS: Lidocaine 5% Patch T-DERMAL SCH (08:59)
[2018-09-28] MEDS ORDERED: Ketorolac Inj 30 MG/ML (IVP) Vial IV.PUSH ONE (11:34)
--- NOTE | 2018-09-28 11:34 | P.PNIM ---
Subjective Interval history: Patient reports continued back pain radiating towards the left lower leg. Still requiring IV pain medication. States that he wants a adjustable commode versus just a bedside commode. Using walker to get around. Physical Exam Vital signs: Vital Signs 09/27/18 12:00 09/27/18 19:10 09/28/18 00:00 Temperature 99.5 F 98.1 F 97.7 F Pulse Rate 67 63 61 Respiratory Rate 18 18 18 Blood Pressure 143/78 H 135/73 137/86 Pulse Oximetry 97 96 96 09/28/18 04:15 09/28/18 05:40 09/28/18 08:09 Temperature 97.8 F 97.7 F Pulse Rate 58 L 55 L Respiratory Rate 18 17 18 Blood Pressure 141/83 H 147/95 H Pulse Oximetry 96 97 Intake & Output 09/27/18 09/28/18 09/28/18 18:59 06:59 18:59 Intake Total 1000 / 1000 1000 / 1000 1000 / 1000 Balance 1000 / 1000 1000 / 1000 1000 / 1000 Weight 114.2 kg Intake: IV 1000 / 1000 1000 / 1000 1000 / 1000 NS Inj 1,000 ML @ 100 mls/hr IV 1000 / 1000 1000 / 1000 1000 / 1000 .CONT .Q10H [facility] Rx#:[id number] Other: Date of Last Bowel Movement 09/26/18 09/26/18 Narrative: PE: GENERAL: Very pleasant middle-aged white male in no acute distress. at bedside. CARDIOVASCULAR: Regular rate and rhythm. No obvious murmurs to auscultation. No chest tenderness to palpation. RESPIRATORY: No obvious rhonchi or wheezing. Clear to auscultation. Breath sounds equal bilaterally. GASTROINTESTINAL: Abdomen soft, non-tender, nondistended. BS normal. MUSCULOSKELETAL: Extremities without clubbing, cyanosis, or edema. No obvious deformities. Tenderness palpated in the mid lower back NEUROLOGICAL: Awake, alert and oriented x4. No focal neurologic deficits. Moving both upper and lower extremities spontaneously with a 5 out of 5 motor strength. Results Labs CBC & Chem 7: 09/26/18 23:00 09/28/18 07:22 Imaging Imaging: Impressions Lumbar Spine MRI 09/27/18 00:00 CONCLUSION: 1. Mild degenerative changes as above. No canal or foraminal stenosis. No direct nerve root compression. Conus medullaris intact Assessment and Plan Plan 57-year-old white male with a history of hypertension hyperlipidemia currently visiting from [place] presents with back pain after he sustained a fall from his truck striking his back on the hitch Left lumbar transverse process fractures, L1, L2 and L4 -unable to ambulate due to significant pain ; likely will need TLSO, Appreciate neurosurgery recommendations. Continue physical therapy [place] and IV morphine for pain; add lidocaine patch, schedule Flexeril MRI lumbar spine showed no direct nerve compression. Hypokalemiareplete check magnesium level Hypertension, chronic, overall controlled resume home amlodipine and HCTZ Hyperlipidemiaresume home statin DVT prophylaxisSCDs Will need DME's upon discharge to home. When pain better controlled and increase activity will discharge home, patient will travel locally to [place] and then back to [place]. Progress Note: Quality VTE Deep Vein Thrombosis/Pulmonary Embolism Present on Admission: No
--- NOTE | 2018-09-28 12:05 | P.PNNS ---
Subjective Interval history: reports back pain is better today, denies new neurological complaints, no bowel or bladder incontinence <Madhavi Terryaux - Last Filed: 09/28/18 12:01> Physical Exam Vital signs: Vital Signs 09/27/18 19:10 09/28/18 00:00 09/28/18 04:15 Temperature 98.1 F 97.7 F 97.8 F Pulse Rate 63 61 58 L Respiratory Rate 18 18 18 Blood Pressure 135/73 137/86 141/83 H Pulse Oximetry 96 96 96 09/28/18 05:40 09/28/18 08:09 Temperature 97.7 F Pulse Rate 55 L Respiratory Rate 17 18 Blood Pressure 147/95 H Pulse Oximetry 97 Intake & Output 09/27/18 09/28/18 09/28/18 18:59 06:59 18:59 Intake Total 1000 / 1000 1000 / 1000 1300 / 1300 Balance 1000 / 1000 1000 / 1000 1300 / 1300 Weight 114.2 kg Intake: IV 1000 / 1000 1000 / 1000 1300 / 1300 NS Inj 1,000 ML @ 100 mls/hr IV 1000 / 1000 1000 / 1000 1300 / 1300 .CONT .Q10H [facility] Rx#:[id number] Other: Date of Last Bowel Movement 09/26/18 09/26/18 Narrative: Awake, alert, oriented x 3 resting comfortably in bed CN II-XII grossly intact moves upper and lower extremities with 5/5 strength sensory intact x 4 extremities <Madhavi Terryaux - Last Filed: 09/28/18 12:01> Vital signs: Vital Signs 09/28/18 00:00 09/28/18 04:15 09/28/18 05:40 Temperature 97.7 F 97.8 F Pulse Rate 61 58 L Respiratory Rate 18 18 17 Blood Pressure 137/86 141/83 H Pulse Oximetry 96 96 09/28/18 08:09 09/28/18 12:09 09/28/18 16:09 Temperature 97.7 F 97.7 F 97.9 F Pulse Rate 55 L 65 64 Respiratory Rate 18 18 17 Blood Pressure 147/95 H 147/85 H 137/86 Pulse Oximetry 97 96 96 09/28/18 20:00 Temperature 98.5 F Pulse Rate 60 Respiratory Rate 16 Blood Pressure 150/89 H Pulse Oximetry 96 Intake & Output 09/28/18 09/28/18 09/29/18 06:59 18:59 06:59 Intake Total 1000 / 1000 1300 / 1300 Balance 1000 / 1000 1300 / 1300 Weight 114.2 kg Intake: IV 1000 / 1000 1300 / 1300 NS Inj 1,000 ML @ 100 mls/hr IV 1000 / 1000 1300 / 1300 .CONT .Q10H [facility] Rx#:[id number] Other: Date of Last Bowel Movement 09/26/18 09/26/18 <Wallace Aguilar - Last Filed: 09/28/18 23:02> Assessment and Plan - Plan [address] confirmed Lt. L1,2,4 TP fractures s/p mechanical fall unto a trailer hitch c/o severe LBP which radiates to LLE to the level of the knee Neuro intact +SLR on the right to approx. 30 degrees, on the left 20 degrees recc: lumbar corsette for comfort. Pain control, would add muscle relaxant to his regimen... Robaxin 750 mg. po. T.I.D These are stable fractures and will not require brace or Neurosurgical intervention. However, will need L-spine MRI w/o EZEQUIEL to r/o acute disc herniation as patient exhibiting radicular symptoms. ?Trauma survey Will continue to follow 09/28/2018 back pain better, neuro stable nonoperative management of TP fractures may wear back brace only as needed for comfort physical therapy and mobilize no further neurosurgical interventions planned will sign off, please call prn <Beverly Terry - Last Filed: 09/28/18 12:01> - Attending Attestation I have personally seen and examined the patient, reviewed pertinent labs and imaging studies with the Neurosurgery team. I agree with Ms. Terry's ( Neurosurgery [facility]), assessment as well as plan of care. <Wallace Aguilar - Last Filed: 09/28/18 23:02>
--- NOTE | 2018-09-28 12:06 | P.DCO ---
Diagnosis (1) Lumbar transverse process fracture: Status: Acute Physical Therapy Order: Evaluate and treat Home Health Nursing Order: Nursing assessment with vital signs Case Management Consult Case Management Consult-Home Health: Yes I have seen patient Lamin Akhtar on 09/28/18. My clinical findings support the need for the requested home health care services because: High risk of falls I certify that my clinical findings support that this patient is homebound because: Unsteady gait/balance
[2018-09-29] MEDS: Morphine Sulfate Inj 2 MG/ML Vial IV.PUSH PRN ×4 (04:16→21:40)
[2018-09-29 07:50] LABS: Anion Gap 6 meq/L (5-15); Blood Urea Nitrogen 16 mg/dL (7-18); Calcium 7.8 mg/dL (8.5-10.1); Carbon Dioxide 31.8 meq/L (21.0-32.0); Chloride 102 meq/L (98-107); Glomerular Filtration Rate Greater Than 89 mL/min (>89); Glucose,Random 96 mg/dL (74-106); Potassium 3.2 meq/L (3.5-5.1); Sodium 140 meq/L (136-145)
[2018-09-29] MEDS: Senna/Docusate Sodium 8.6/50 MG Tablet PO SCH ×2 (08:31→21:40)
[2018-09-29] MEDS: amLODIPine 5 MG Tablet PO SCH (08:31)
[2018-09-29] MEDS: Lidocaine 5% Patch T-DERMAL SCH (08:33)
[2018-09-29] MEDS: oxyCODONE/Acetaminophen 10/325 Tablet PO PRN ×3 (13:11→23:48)
--- NOTE | 2018-09-29 14:31 | P.PNIM ---
Subjective Interval history: Still with a lot of back pain, pain still she is down to the left leg. Working with physical therapy. Still requiring IV pain medication. Physical Exam Vital signs: Vital Signs 09/28/18 16:09 09/28/18 20:00 09/29/18 00:00 Temperature 97.9 F 98.5 F 98.2 F Pulse Rate 64 60 67 Respiratory Rate 17 16 16 Blood Pressure 137/86 150/89 H 139/82 Pulse Oximetry 96 96 95 09/29/18 04:00 09/29/18 08:00 09/29/18 12:00 Temperature 98.5 F 98.6 F 98.3 F Pulse Rate 65 65 63 Respiratory Rate 16 18 18 Blood Pressure 136/82 147/89 H 140/73 Pulse Oximetry 95 94 L 97 Intake & Output 09/28/18 09/29/18 09/29/18 18:59 06:59 18:59 Intake Total 1300 / 1300 100 / 100 Balance 1300 / 1300 100 / 100 Weight 112.7 kg Intake: IV 1300 / 1300 NS Inj 1,000 ML @ 100 mls/hr IV 1300 / 1300 .CONT .Q10H [facility] Rx#:[id number] Oral 100 / 100 Other: # Voids 1 Date of Last Bowel Movement 09/26/18 Narrative: PE: GENERAL: Very pleasant middle-aged white male in no acute distress. at bedside. CARDIOVASCULAR: Regular rate and rhythm. No obvious murmurs to auscultation. RESPIRATORY: No obvious rhonchi or wheezing. Clear to auscultation. Breath sounds equal bilaterally. GASTROINTESTINAL: Abdomen soft, non-tender, nondistended. BS normal. MUSCULOSKELETAL: Extremities without clubbing, cyanosis, or edema. No obvious deformities. Tenderness palpated in the mid lower back NEUROLOGICAL: Awake, alert and oriented x4. No focal neurologic deficits. Moving both upper and lower extremities with a 5 out of 5 motor strength. Results Labs CBC & Chem 7: 09/26/18 23:00 09/29/18 06:45 Assessment and Plan (1) Lumbar transverse process fracture: Code(s): S32.009A - Unspecified fracture of unspecified lumbar vertebra, initial encounter for closed fracture Status: Acute Plan 57-year-old white male with a history of hypertension hyperlipidemia currently visiting from [place] presents with back pain after he sustained a fall from his truck striking his back on the hitch Left lumbar transverse process fractures, L1, L2 and L4 -unable to ambulate due to significant pain ; likely will need TLSO, Appreciate neurosurgery recommendations. Continue physical therapy still requiring IV morphine for breakthrough pain pain, will change [place] to Percocet as needed for pain; continue lidocaine patch, schedule Flexeril MRI lumbar spine showed no direct nerve compression. Hypokalemiareplete check magnesium level Hypertension, chronic, overall controlled resume home amlodipine and HCTZ Hyperlipidemiaresume home statin DVT prophylaxisSCDs Will need DME's upon discharge to home. When pain better controlled and off IV pain medication and increase activity will discharge home, patient will travel locally to [place] and then back to [place]. Progress Note: Quality VTE Deep Vein Thrombosis/Pulmonary Embolism Present on Admission: No
[2018-09-30] MEDS: Senna/Docusate Sodium 8.6/50 MG Tablet PO SCH ×2 (08:57→20:17)
[2018-09-30] MEDS: Lidocaine 5% Patch T-DERMAL SCH (08:57)
[2018-09-30] MEDS: amLODIPine 5 MG Tablet PO SCH (08:57)
[2018-09-30] MEDS: oxyCODONE/Acetaminophen 10/325 Tablet PO PRN ×4 (09:01→22:15)
--- NOTE | 2018-09-30 11:24 | P.PNIM ---
Subjective Interval history: Patient reports pain did improve on Percocet, it is constant and he is still using IV morphine for breakthrough pain. He wants to stay here 1 more day to try to get off the IV pain medication. He is working with physical therapy. Pain still radiates down the left leg, no weakness or numbness Physical Exam Vital signs: Vital Signs 09/29/18 12:00 09/29/18 16:50 09/29/18 19:29 Temperature 98.3 F 98.2 F 98.4 F Pulse Rate 63 62 68 Respiratory Rate 18 20 16 Blood Pressure 140/73 147/91 H 141/82 H Pulse Oximetry 97 95 95 09/30/18 00:00 09/30/18 04:00 09/30/18 08:44 Temperature 97.8 F 98.1 F 97.8 F Pulse Rate 67 68 61 Respiratory Rate 16 16 17 Blood Pressure 183/92 H 154/93 H 147/84 H Pulse Oximetry 96 96 96 Intake & Output 09/29/18 09/30/18 09/30/18 18:59 06:59 18:59 Intake Total 480 / 480 Balance 480 / 480 Weight 111.4 kg Intake: Oral 480 / 480 Other: # Voids 4 Date of Last Bowel Movement 09/29/18 Narrative: PE: GENERAL: Very pleasant middle-aged white male in no acute distress. at bedside. CARDIOVASCULAR: Regular rate and rhythm. No obvious murmurs to auscultation. RESPIRATORY: No obvious rhonchi or wheezing. Clear to auscultation. Breath sounds equal bilaterally. GASTROINTESTINAL: Abdomen soft, non-tender, nondistended. BS normal. MUSCULOSKELETAL: Extremities without clubbing, cyanosis, or edema. No obvious deformities. Tenderness palpated in the mid lower back NEUROLOGICAL: Awake, alert and oriented x4. No focal neurologic deficits. Moving both upper and lower extremities with a 5 out of 5 motor strength. Results Labs CBC & Chem 7: 09/26/18 23:00 09/29/18 06:45 Assessment and Plan (1) Lumbar transverse process fracture: Code(s): S32.009A - Unspecified fracture of unspecified lumbar vertebra, initial encounter for closed fracture Status: Acute Plan 57-year-old white male with a history of hypertension hyperlipidemia currently visiting from [place] presents with back pain after he sustained a fall from his truck striking his back on the hitch Left lumbar transverse process fractures, L1, L2 and L4 -unable to ambulate due to significant pain ; likely will need TLSO, Appreciate neurosurgery recommendations. Continue physical therapy still requiring IV morphine for breakthrough pain pain, will continue Percocet as needed for pain as needed every 4 hours; continue lidocaine patch, will try to schedule Robaxin and stop Flexeril MRI lumbar spine showed no direct nerve compression. Hypokalemiareplete , recheck level today Hypertension, chronic, overall controlled resume home amlodipine and HCTZ Hyperlipidemiaresume home statin DVT prophylaxisSCDs Will need DME's upon discharge to home with home health care when pain better controlled and off IV pain medication and increase activity will discharge home , patient will travel locally to [place] and then back to [place]. Progress Note: Quality VTE Deep Vein Thrombosis/Pulmonary Embolism Present on Admission: No
[2018-09-30] MEDS: Morphine Sulfate Inj 2 MG/ML Vial IV.PUSH PRN ×3 (11:35→20:16)
[2018-09-30] MEDS: Methocarbamol 500 MG Tablet PO SCH ×2 (13:46→22:15)
[2018-10-01] MEDS: Morphine Sulfate Inj 2 MG/ML Vial IV.PUSH PRN (00:05)
[2018-10-01] MEDS: oxyCODONE/Acetaminophen 10/325 Tablet PO PRN ×2 (04:48→08:23)
[2018-10-01] MEDS: Methocarbamol 500 MG Tablet PO SCH (05:55)
[2018-10-01] MEDS: amLODIPine 5 MG Tablet PO SCH (08:21)
[2018-10-01] MEDS: Senna/Docusate Sodium 8.6/50 MG Tablet PO SCH (08:22)
[2018-10-01] MEDS: Lidocaine 5% Patch T-DERMAL SCH (08:27)
[2018-10-01 09:10] VITALS: BP 152/92; PULSE 59; RESP 18; TEMP 97.5; O2SAT 95
--- NOTE | 2018-10-01 13:20 | P.DS ---
DS: Providers Date of admission: 09/27/18 01:49 Primary care physician: No Primary Care Physician Consults: 09/27/18 11:25 Consult to Neurosurgery Routine Consulting Provider: Wallace Valdes Reason for Consultation: Lumbar L1, 2, 4 transverse process fracture, status post mechanical fall Notified:: Physician Spoke with:: DR. VALDES Date Notified:: 09/27/18 Time Notified:: 11:37 Ordering Provider: JOSE ANTONIO Brief History from admission: This is a 57-year-old male with a PMH of HTN and Hyperlipidemia who was brought to the ER after a fall w/ c/o back pain. [place] the [place] and fell from his truck, striking his back on the hitch. No head trauma or LOC. No other injuries reported. Pain is severe, constant, 10/10, non-radiating, worse w/ ambulation. On arrival, BP 154/97, HR 55, O2 sat 98% on RA, Afebrile. CBC unremarkable. K+ 2.6. GFR 84. Alcohol 232. CT Abdomen/Pelvis with left lumbar transverse process fractures. TLSO brace and ambulation attempted in ER, however pt w/ significant pain, unable to ambulate at this time. Patient update on day of discharge: Pain better controlled on Percocet regimen and Robaxin. Feels that he can go home today, last IV pain medication dose was yesterday and has not needed any today. DS: Diagnosis Discharge Diagnosis (1) Lumbar transverse process fracture: Status: Acute DS: Summary 57-year-old white male with a history of hypertension, hyperlipidemia sustained a fall from his truck striking his back leading to a left lumbar transverse process fracture L1, L2 and L4 . He was admitted for pain control with both oral narcotics and IV morphine for breakthrough pain. He was seen by neurosurgery who recommended conservative treatment and no surgical intervention needed. MRI of the lumbar spine showed no direct nerve compression. Lidocaine patch was also use along with scheduled Robaxin to improve the pain in order to do physical therapy and ambulating. His hypokalemia was repleted. His home medication for hypertension hyperlipidemia resume. Durable medical equipment including commode, walker was arranged with home health care physical therapy to transition home. Patient will travel locally back to [facility] and then later back to [place]. Time Spent with Patient Total time spent providing and/or coordinating discharge services: Greater than 30 minutes Specific discharge activities: Case management coordination to arrange durable medical equipment and home health care physical therapy, medication reconciliation and prescription arranged with outpatient follow-up. Quality: VTE Deep Vein Thrombosis/Pulmonary Embolism Present on Admission: No Exam Narrative Exam Narrative: Well-nourished well-developed white male no acute distress Cardiovascular regular rate and rhythm Lungs relatively clear to auscultation bilaterally Abdomen soft nontender nondistended Extremities no cyanosis clubbing or edema Alert and oriented x4, motor strength 5 out of 5 bilateral upper and lower extremities Results Labs on day of discharge: Labs from last 24 hours 09/30/18 14:15 Potassium 3.3 L Impressions ITS Impressions Abdomen/Pelvis CT 09/26/18 23:02 CONCLUSION: 1. Left lumbar transverse process fractures. 2. No acute intra-abdominal or pelvic traumatic injury. Lumbar Spine MRI 09/27/18 00:00 CONCLUSION: 1. Mild degenerative changes as above. No canal or foraminal stenosis. No direct nerve root compression. Conus medullaris intact Discharge Plan Discharge Disposition Patient Disposition: W/Home Health Service Discharge Condition Condition: Good Discharge Order Discharge Orders: Discharge Order (Routine); Ordered 10/01/18 Ordered By: Yanet Holder Discharge Details Anticipated Discharge Date: 10/01/18 Physicians Team Primary Care Provider: Primary Care Maty,Laurel Attending Provider: Yanet Holder Other Providers: Wallace Valdes Rxs /Orders / Referrals /Forms Prescriptions: New methocarbamol 500 mg Tablet 500 mg PO Q8HR Qty: 90 RF: 0 oxycodone-acetaminophen 10-325 mg Tablet 1 tab PO Q4HR PRN (Reason: Acute Pain Exception) Qty: 42 RF: 0 Continue atorvastatin 10 mg Tablet 10 mg PO DAILY RF: 0 amlodipine 2.5 mg Tablet 2.5 mg PO DAILY RF: 0 hydrochlorothiazide 12.5 mg Capsule 12.5 mg PO DAILY RF: 0 Ambulatory Orders / Order Sets / DME: [employer] 3-in-1 (1 each) (Routine) Location: Determined by Patient Ordered By: Yanet Holder Walker With Front Wheels (1 each) (Routine) Location: Determined by Patient Ordered By: Yanet Holder Referrals: [facility] [Outside] - See Instructions ( Please call the physician's office to book the appointment to be seen within 1 to 2 weeks.) Primary Care Provider [Outside] - See Instructions ( Please call the physician's office to book the appointment to be seen within 1 week.) Primary Care Laurel Rutledge [Primary Care Provider] - See Instructions (CALL [facility] FOR A FOLLOW UP APPOINTMENT AT [phone] (NEED MEDICAL RECORD INFORMATION)) Wallace Valdes MD [Physician] - See Instructions ( Please call the physician' s office to book the appointment as needed.) Discharge Instructions Patient Printed Instructions: Oxycodone/Acetaminophen (By mouth), Methocarbamol (By mouth) Post Discharge Care Plan Care Plan Goals: Your Health Problems: lumbar fracture Goals to Promote Your Health: * To prevent worsening of your condition * To maintain your health at the optimal level Directions to Meet Your Goals: * Take your medications as prescribed * Follow your dietary instruction * Follow activity as directed * Keep your appointments as scheduled * Take your immunizations and boosters as scheduled * If your symptoms worsen call your PCP * If no PCP go to Urgent Care or Emergency Room Smoking is dangerous to your health. Avoid second hand smoke. You may reach the 24-hour crisis hotline for domestic abuse at . Status ED Status: Left Department Discharge Information Discharge Date/Time: 10/01/18 13:06
== END 2018-10-01 13:06 | disposition home health service (06) | DRG 552 ==
LOC: NEPE 22:32 → NEDA 09-27 01:49 → N04 09-27 04:47
PROVIDERS: ADMIT Family Medicine; ATTEND Family Medicine
DX: I10 Essential (primary) hypertension; Y93.89 Activity, other specified; E78.5 Hyperlipidemia, unspecified; F17.210 Nicotine dependence, cigarettes, uncomplicated; S32.048A Other fracture of fourth lumbar vertebra, initial encounter for closed fracture; Y92.39 Other specified sports and athletic area as the place of occurrence of the external cause; Y90.7 Blood alcohol level of 200-239 mg/100 ml; Z79.899 Other long term (current) drug therapy; E87.6 Hypokalemia; F10.129 Alcohol abuse with intoxication, unspecified; V48.2XXA Person on outside of car injured in noncollision transport accident in nontraffic accident, initial encounter; S32.028A Other fracture of second lumbar vertebra, initial encounter for closed fracture; S32.018A Other fracture of first lumbar vertebra, initial encounter for closed fracture; Z88.0 Allergy status to penicillin
CPT/HCPCS: 72148; 74177; 80048; 80053; 80307; 83735; 84132; 85025; 90774; 90775; 90776; 90784; 96374; 96375; 96376; 97110; 97116; 97162; 99285; C8952; J1885; J2270; J3480; J7030; L0200; L0484; L0560; L0565; Q9967